=== PATIENT | female | born 1945 | race Caucasian/White ===

== ENCOUNTER 2022-02-13 09:53 | Emergency (ER) | payer OTHER ==
[~2022-02-13] VITALS: Ht 160 cm; Wt 54.9 kg
[~2022-02-13 09:53] MED LIST: ATACAND16 MG PO; CALTRATE-600/VI1 TA1 PO; CLARINEX2.5 MG/TAB PO; GLIMEPIRIDE1 MG PO; METFORMIN HCL500 MG PO; NEURONTIN300 MG PO; [UNRECOGNIZED DRUG - OTHER]
== END 2022-02-13 15:45 ==
LOC: ER 09:53
DX: B34.9 Viral infection, unspecified (principal); R05.9 Cough, unspecified; E11.9 Type 2 diabetes mellitus without complications; Z79.899 Other long term (current) drug therapy; I10 Essential (primary) hypertension; Z20.822 Contact with and (suspected) exposure to COVID-19

== ENCOUNTER 2022-03-30 13:18 | Emergency (ER) | payer OTHER ==
[~2022-03-30] VITALS: Ht 160 cm; Wt 59.0 kg
[2022-03-30] MEDS ORDERED: DIOVAN160 M1 PO (14:07)
[2022-03-30] MEDS ORDERED: CEPHALEXIN500 M1 PO (20:34)
== END 2022-03-30 20:38 | disposition home or self-care (01) ==
LOC: ER 13:18
DX: R60.0 Localized edema (principal); E11.9 Type 2 diabetes mellitus without complications; Z79.84 Long term (current) use of oral hypoglycemic drugs; I10 Essential (primary) hypertension; E80.20 Unspecified porphyria; M77.31 Calcaneal spur, right foot

== ENCOUNTER → 2022-11-07 | Emergency (ER) | payer OTHER ==
[~2022-11-07] VITALS: Ht 160 cm; Wt 62.1 kg
[~2022-11-07] MED LIST changes: +CEPHALEXIN500 M1 PO; +DIOVAN160 M1 PO
== END | disposition home or self-care (01) ==
LOC: ER 22:04
DX: M62.838 Other muscle spasm (principal); W01.0XXA Fall on same level from slipping, tripping and stumbling without subsequent striking against object, initial encounter; Y93.9 Activity, unspecified; Y92.019 Unspecified place in single-family (private) house as the place of occurrence of the external cause

== ENCOUNTER 2023-01-15 13:54 | Emergency (ER) | payer OTHER ==
[~2023-01-15] VITALS: Ht 160 cm; Wt 57.6 kg
[2023-01-15] MEDS ORDERED: ADVIL LIQUI-GE200 MG PO (18:44)
[2023-01-15] MEDS ORDERED: TYLENOL ARTHRI650 MG PO (18:44)
== END 2023-01-15 18:50 | disposition home or self-care (01) ==
LOC: ER 13:54
DX: M54.2 Cervicalgia (principal); S43.492A Other sprain of left shoulder joint, initial encounter; I10 Essential (primary) hypertension

== ENCOUNTER 2025-07-14 13:56 | Emergency (ER) | payer OTHER ==
[~2025-07-14] VITALS: Ht 160 cm; Wt 62.1 kg
[~2025-07-14 13:56] MED LIST changes: +ADVIL LIQUI-GE200 MG PO; +DICLOFENAC POTA50 MG PO; +TYLENOL ARTHRI650 MG PO; +ZANAFLEX4 MG PO
[2025-07-14] MEDS ORDERED: MELOXICAM7.5 MG PO (15:12)
[2025-07-14] MEDS ORDERED: GRALISE600 MG PO (15:12)
[2025-07-14] MEDS ORDERED: FAMOtidine 10 MG/ML (4ML VIAL) IV PUSH ONE (15:30)
[2025-07-14] MEDS ORDERED: TAMSULOSIN HCL 0.4 MG CAP PO ONE ×2 (15:30→17:22)
[2025-07-14] MEDS ORDERED: ACETAMINOPHEN 500 MG GEL..CAP PO ONE ×2 (15:30→17:22)
[2025-07-14] MEDS ORDERED: KETOROLAC TROMETHAMINE 30 MG VIAL IU ONE (15:30)
[2025-07-14] MEDS ORDERED: 0.9 % SODIUM CHLORIDE 1,000 ML IV SCH (15:30)
[2025-07-14] MEDS ORDERED: KETOROLAC TROMETHAMINE 30 MG VIAL ONE (17:22)
[2025-07-14] MEDS ORDERED: FAMOTIDINE/PF 20 MG/2 ML VIAL ONE (17:23)
[2025-07-14 18:13] LABS: BASO % 0.1 % (0.1-1.2); EOS # 0.04 (0.04-0.54); EOS % 0.4 % (0.7-7.0); LYMPH # 3.11 (1.18-3.74); LYMPH % 32.6 % (19.3-53.1); MEAN PLATELET VOLUME 10.40 fl (9.4-12.4); MONO # 1.03 (0.24-0.82); MONO % 10.8 % (4.7-12.5); NEUT # 5.32 (1.56-6.13); NEUT % 55.8 % (34.0-71.1); RED CELL DISTRIBUTION WIDTH 12.5 % (11.6-14.4)
[2025-07-14 18:14] LABS: ERYTHROCYTE SEDIMENTATION RATE 48 mm/hr (0-30)
[2025-07-14 18:33] LABS: INR 1.06
[2025-07-14 18:39] LABS: ALT/SGPT 31.0 U/L (12-78); AST/SGOT 15.0 U/L (15-37); BILIRUBIN TOTAL 0.67 mg/dL (0.3-1.2); BUN CREA RATIO 17.0 (7.0-25.0); CREATININE SERUM 0.81 mg/dL (0.55-1.02); GFR 67.86; GLOBULINA 3.9 G/DL (2.4-3.5); OSMOLALITY SERUM 284.0 MOSM/KG (275-295)
[2025-07-14 18:42] LABS: GLUCOSE FASTING 248.0 mg/dL (65-100)
[2025-07-14 19:04] LABS: URINE APPEARANCE Clear; URINE BILIRRUBIN Negative (NEGATIVE); URINE BLOOD Negative; URINE COLOR Dark Yellow; URINE GLUCOSE Negative (NEGATIVE); URINE KETONE Trace (NEGATIVE); URINE LEUKOCYTE Trace; URINE NITRATE Negative; URINE PROTEIN 30 (NEGATIVE); URINE UROBILINOGEN 0.2 E.U./dl
[2025-07-14 19:05] LABS: URINE BACTERIA 172.8 uL (0.0-1933); URINE EPITHELIAL CELLS 7.8 uL (0.0-38.8); URINE RBC 14.8 uL (0.0-20.8); URINE WBC 39.9 uL (0.0-23.2)
[2025-07-14 19:14] LABS: URINE CAST 0.00 uL (0.0-1.40)
[2025-07-14] MEDS ORDERED: 8 HOUR PAIN RE650 M1 PO (19:48)
[2025-07-14] MEDS ORDERED: PEPCID AC20 MG PO (19:48)
[2025-07-14] MEDS ORDERED: NORFLEX100MG PO (19:48)
== END 2025-07-14 21:59 | disposition home or self-care (01) ==
LOC: ER 13:57
PROVIDERS: General Practice
DX: N20.0 Calculus of kidney (principal); E80.1 Porphyria cutanea tarda; I10 Essential (primary) hypertension; E11.9 Type 2 diabetes mellitus without complications; Z79.84 Long term (current) use of oral hypoglycemic drugs